=== PATIENT | female | born 1960 | race Asian ===

== ENCOUNTER → 2021-12-02 | Day surgery (SDC) | payer MEDICAID ==
[~2021-12-02] VITALS: Ht 152.4 cm; Wt 77.1 kg
[~2021-12-02] MED LIST: ALBU8.5H8 IH; ALBUTEROL SULFATE 2.5 MG/0.5 ML NEB SOLUTION NEB ONE; ATOR20TA86 PO; BACL10TA PO; BENZOCAINE 20% 50 MCG/SPRAY 57 GM TP ONE; FAMO20 PO; FentaNYL CITRATE PF 100 MCG/2 ML VIAL ONE; HYDR-4870 PO; KETO10DR3 OU; LIDOCAINE 2% 30 ML JELLY TP ONE; LIDOCAINE 4% 50 ML SOLUTION TP ONE; LOSA-381 PO; MIDAZOLAM HCL 5 MG/ML VIAL ONE; MethylPREDNISolone SOD SUCC 125 MG/2 ML VIAL IVP ONE; MethylPREDNISolone SOD SUCC 125 MG/2 ML VIAL ONE; OMEP20 PO; OXYGEN THERAPY IH SCH; SODIUM CHLORIDE 0.9% 1,000 ML IV ONE
[2021-12-02 06:48] LABS: COVID AG,FIA SOURCE NASAL SWAB
== END | disposition still patient (30) ==
LOC: SURGERY 06:04
PROVIDERS: ATTEND Internal Medicine Critical Care Medicine
DX: J38.4 Edema of larynx (principal); B37.0 Candidal stomatitis; J45.909 Unspecified asthma, uncomplicated; I10 Essential (primary) hypertension; Z79.899 Other long term (current) drug therapy; Z98.890 Other specified postprocedural states
CPT/HCPCS: 31623; 31624; 71045; 87015; 87070; 87101; 87206; 87220; 87426; 88108; 88184; 88185; 88305; C9803; J2250; J2930; J3010; J7613; Z7610

== ENCOUNTER 2025-05-25 06:41 | Day surgery (SDC) | payer MEDICAID ==
[~2025-05-25] VITALS: Ht 152.4 cm; Wt 85.0 kg
[~2025-05-25 06:41] MED LIST changes: -ALBUTEROL SULFATE 2.5 MG/0.5 ML NEB SOLUTION NEB ONE; +ATOR20TA PO; -ATOR20TA86 PO; -BACL10TA PO; -BENZOCAINE 20% 50 MCG/SPRAY 57 GM TP ONE; -FAMO20 PO; -FentaNYL CITRATE PF 100 MCG/2 ML VIAL ONE; -HYDR-4870 PO; -KETO10DR3 OU; -LIDOCAINE 2% 30 ML JELLY TP ONE; -LIDOCAINE 4% 50 ML SOLUTION TP ONE; -MIDAZOLAM HCL 5 MG/ML VIAL ONE; -MethylPREDNISolone SOD SUCC 125 MG/2 ML VIAL IVP ONE; -MethylPREDNISolone SOD SUCC 125 MG/2 ML VIAL ONE; -OMEP20 PO; -OXYGEN THERAPY IH SCH; -SODIUM CHLORIDE 0.9% 1,000 ML IV ONE
[2025-05-25] MEDS ORDERED: FentaNYL CITRATE PF 100 MCG/2 ML VIAL ONE (08:30)
[2025-05-25] MEDS ORDERED: MIDAZOLAM HCL 2 MG/2 ML VIAL ONE (08:30)
[2025-05-25] MEDS: SODIUM CHLORIDE 0.9% 1,000 ML IV ONE (08:36)
[2025-05-25 10:20] VITALS: PULSE 82; RESP 20; O2SAT 98
[2025-05-25] MEDS ORDERED: LIDOCAINE 4% 50 ML SOLUTION ONE (12:00)
[2025-05-25] MEDS ORDERED: BENZOCAINE 20% 50 MCG/SPRAY 57 GM ONE (12:00)
[2025-05-25] MEDS ORDERED: ALBUTEROL SULFATE 2.5 MG/0.5 ML NEB SOLUTION NEB ONE (12:00)
[2025-05-25] MEDS ORDERED: LIDOCAINE 2% 11 ML JELLY ONE (12:00)
== END 2025-05-25 14:55 | disposition home or self-care (01) ==
LOC: SDS 06:41
PROVIDERS: ATTEND Internal Medicine Critical Care Medicine
DX: J38.4 Edema of larynx (principal); B37.0 Candidal stomatitis; R05.3 Chronic cough; R06.2 Wheezing
CPT/HCPCS: 31623; 87206; 87101; 87220; 87070; 88108; 31624; 94640; 71045; 87015; J3010; J2250; J2919; J7613; Z7610